=== PATIENT | female | born 1990 | race Caucasian/White ===

== ENCOUNTER 2020-09-07 09:21 | Outpatient (REF) | payer OTHER, SELFPAY ==
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
== END 2020-09-07 09:22 | disposition home or self-care (01) ==
LOC: HO.SH 09:21
PROVIDERS: Visit Provider Nurse Practitioner Family
DX: H93.293 Other abnormal auditory perceptions, bilateral (principal)
CPT/HCPCS: 92557; 92567; 92588; 92700

== ENCOUNTER → 2021-08-23 08:01 | Outpatient (BNVA) | payer SELFPAY | PROVIDERS: Visit Provider Physician Assistant Medical | DX: Z02.79 Encounter for issue of other medical certificate (principal) ==